=== PATIENT | male | born 1960 | race Caucasian/White ===

== ENCOUNTER → 2017-05-31 | Outpatient (CLI) | payer SELFPAY | LOC: COL.RAD 13:16 | DX: R19.00 Intra-abdominal and pelvic swelling, mass and lump, unspecified site (principal); K42.9 Umbilical hernia without obstruction or gangrene ==

== ENCOUNTER 2022-01-29 08:17 | Day surgery (SDC) | payer OTHER ==
[2022-01-29] VITALS (11 sets, daily range): BP systolic 127–165; BP diastolic 69–94; PULSE 47–72; TEMP 96.8–98.9
[~2022-01-29] VITALS: Ht 185.4 cm; Wt 131.0 kg
[2022-01-29] MEDS ORDERED: PRINZIDE 12.5 M1 TA1 PO (08:47)
[2022-01-29] MEDS ORDERED: CARDIZEM SR 60M60 MG PO (08:47)
[2022-01-29] MEDS ORDERED: VIAGRA100 M1 PO (08:47)
[2022-01-29] MEDS ORDERED: COZAAR 25MG25 MG/TAB PO (08:48)
[2022-01-29] MEDS ORDERED: AMBIEN 5MG TABLE5 MG PO (09:12)
--- NOTE | 2022-01-29 09:23 | NUR ---
Ck, STOCK PARTS INSPECTOR was notified of the patient's blood pressure on admission and verbalized understanding at this time. No further orders were given at this time. Will continue to monitor the patient.
[2022-01-29] MEDS ORDERED: ALEVE 220MG220 MG PO (09:25)
--- NOTE | 2022-01-29 12:05 | NUR ---
Patient received post op from [facility]. Patient slightly drowsy. Vss on O2. Louis to DD with peach tinged output. CBI to slow drip. Ivf per orders. Scds ble. Ice water provided. Tv turned on will let him rest.
--- NOTE | 2022-01-29 12:38 | NUR ---
Patient continues to fall asleep easy. Cbi pink tinged. Vss on room air. Will monitor
--- NOTE | 2022-01-29 19:31 | NUR ---
Patient up to chair for dinner. Denies nausea. He continues to fall asleep easy, but easily arousable. Vss on room air. Cbi to a slow moderate rate. Red tinged output. Int. PO intake encouraged. miguel a report to corneliusurse
--- NOTE | 2022-01-29 19:45 | NUR ---
Pt. sitting up in bed. Pt. is A&OX3, assessment complete. INT to lt. hand patent. Louis catheter to DD, with CBI running. Urine is pink in color. Pt. denies pain or other needs, call light within reach.
[2022-01-30] VITALS: BP 171/84; PULSE 71; TEMP 98.4
[2022-01-30 04:00] VITALS: BP 173/99; PULSE 66; TEMP 98.1
[2022-01-30 08:00] VITALS: BP 171/93; PULSE 72; TEMP 98
--- NOTE | 2022-01-30 08:00 | NUR ---
PATIENT IS ORIENTED BUT DROWSY THIS AM. NOTED ELEVATED B/P IN THE 170'S WHICH PATIENT REPORTS IS NORMAL FOR HIM ESPECIALLY IN THE MORNING. AM B/P MEDS GIVEN. CARRASCO TO DD WITH CBI INFUSING AT SLOW RATE. URINE IS PINK, NO CLOTS NOTED. LEFT HAND IV TO INT. BREAKFAST TRAY ORDERED. AM MEDS GIVEN. HEAD TO TOE ASSESSMENT COMPLETE. PATIENT REQUESTED COFFEE, GIVEN. PATIENT ALSO HAD A "FRIEND" ALYX CALL AND HE DID NOT WANT INFO GIVEN TO HERE OVER THE PHONE. HE SAID "SHE IS A PAIN IN THE ASS" AND DIDN'T WANT TO TAKE HER CALLS TODAY. NO OTHER NEEDS AT THIS TIME. CALL LIGHT IN REACH.
--- NOTE | 2022-01-30 11:08 | NUR ---
Initial visit attempt; Patient resting, Administrative Office Manager left card informing patient of the availability of spiritual care of at our hospital.
[2022-01-30 12:00] VITALS: BP 170/87; PULSE 68; TEMP 98.2
[2022-01-30 15:56] VITALS: BP 161/91; PULSE 98; TEMP 97.6
== END 2022-01-30 17:00 | disposition home or self-care (01) ==
LOC: SDCO 08:17 → SURG 11:40 → SDCO 01-30 17:00
DX: N40.0 Benign prostatic hyperplasia without lower urinary tract symptoms (principal); F17.210 Nicotine dependence, cigarettes, uncomplicated
CPT/HCPCS: OP; J2250; J2704; J7120